=== PATIENT | male | born 1990 | race Caucasian/White ===

== ENCOUNTER → 2021-05-19 | Outpatient (CLI) | payer OTHER | LOC: COL.RAD 08:38 | DX: S46.011A Strain of muscle(s) and tendon(s) of the rotator cuff of right shoulder, initial encounter (principal); X58.XXXA Exposure to other specified factors, initial encounter | CPT/HCPCS: A9575; Q9967 ==

== ENCOUNTER → 2021-05-23 | Outpatient (CLI) | payer OTHER | LOC: MHCPAIN 09:52 | DX: M75.111 Incomplete rotator cuff tear or rupture of right shoulder, not specified as traumatic (principal); M25.711 Osteophyte, right shoulder | CPT/HCPCS: G0463; J3301 ==

== ENCOUNTER 2022-06-28 12:26 | Day surgery (SDC) | payer OTHER ==
[2022-06-28] VITALS (7 sets, daily range): BP systolic 130–140; BP diastolic 70–93; PULSE 68–80; TEMP 97.7–97.8
[~2022-06-28] VITALS: Ht 165.1 cm; Wt 64.9 kg
[~2022-06-28 12:26] MED LIST: FLOMAX 0.40.4 MG/CAP PO; PERCOCET 325 MG1 TA2 PO
--- NOTE | 2022-06-28 16:00 | NUR ---
PATIENT RETURNS TO ROOM 8 PER CART FROM PACU ACCOMPANIED BY BEATRIZ ANN. PATIENT IS AWAKE AND ALERT. C/O BEING HUNGRY AND GIVEN ICE CREAM AND ICE WATER PER REQUEST. IV FLUIDS INFUSING. SIDERAILS UP X2 AND CALL LIGHT IN REACH. DENIES PAIN AT PRESENT TIME. TEMP 97.3.
--- NOTE | 2022-06-28 16:15 | NUR ---
STATES HAS THE URGE TO VOID. ASSISTED TO BATHROOM. HAD QUARTER SIZED BLOOD CLOT ON PROTECTIVE PAD ON CART. TOLERATES AMBULATION TO BATHROOM. GIVEN CALL LIGHT.
--- NOTE | 2022-06-28 16:25 | NUR ---
RETURNS TO ROOM. STATES ONLY DRIBBLED SOME URINE. IV FLUIDS CONTINUE TO INFUSE.
--- NOTE | 2022-06-28 16:30 | NUR ---
RESTING ON CART AND TOLERATES FLUIDS.
--- NOTE | 2022-06-28 16:45 | NUR ---
RATES PAIN AT 4/10 AND IS REQUESTING PAIN MEDICATION. DR. KING NOTIFIED AND ORDER RECEIVED FOR TORADOL 15MG IV AND PERCOCET 5/325MG X1 NOW. 1648 BOTH PERCOCET AND TORADOL GIVEN ORDERED AND IS RESTING WITHOUT FURTHER COMPLAINTS.
--- NOTE | 2022-06-28 17:00 | NUR ---
TALKING ON PHONE AND STATES HE IS FEELING MUCH BETTER.
--- NOTE | 2022-06-28 17:30 | NUR ---
IV DISCONTINUED AND SITE IS FREE OF REDNESS OR SWELLING. CONTINUES TO DENY FURTHER PAIN.
--- NOTE | 2022-06-28 17:40 | NUR ---
DISMISSAL INSTRUCTIONS GIVEN AND PROVIDED OFFICE NUMBER FOR QUESTIONS OR CONCERNS. FOLLOW UP APPOINTMENT CARD GIVEN.
--- NOTE | 2022-06-28 18:03 | NUR ---
DISMISSAL INSTRUCTIONS GIVEN AND PATIENT VOICES UNDERSTAND OF THESE. DISMISSED TO HOME DRIVEN BY SPOUSE PER PRIVATE VEHICLE.
== END 2022-06-28 18:03 | disposition home or self-care (01) ==
LOC: SDCO 12:26
DX: N20.1 Calculus of ureter (principal); F17.200 Nicotine dependence, unspecified, uncomplicated
CPT/HCPCS: C1769; J0690; J1885; J2405; J2704; J3010; J7120